=== PATIENT | male | born 1950 | race African-American/Black ===

== ENCOUNTER 2018-08-08 06:12 | Emergency (ER) | payer MEDICARE, MEDICAID ==
[2018-08-08] MEDS ORDERED: Ketorolac Tromethamine 30 MG/ML VIAL ONE (06:45)
[2018-08-08 06:50] LABS: #Basophils 0.1 thou/uL (0.0-0.2); #Lymphocytes 2.1 thou/uL (1.20-3.40); #Monocytes 0.7 thou/uL (0.11-0.59); #Neutrophils 4.5 thou/uL (1.40-6.50); %Basophils 1.2 % (0.0-1.0); %Eosinophils 0.5 % (0.0-10.0); %Lymphocytes 28.2 % (21.0-51.0); %Monocytes 9.6 % (0.0-10.0); %Neutrophils 60.6 % (42.0-75.0); Hemoglobin 16.3 g/dL (14.0-18.0); Mean Corpuscular HGB CONC 31.2 g/dL (32.0-36.0); Mean Corpuscular Hemoglobin 28.4 pg (27.0-31.0); Mean Corpuscular Volume 91.1 fL (78.0-98.0); Mean Platelet Volume 8.2 fL (7.4-10.4); Platelet Count 264 thou/uL (130-400); RBC Distribution Width 13.3 % (11.5-14.5); Red Blood Cell (RBC) Count 5.73 mill/uL (4.70-6.10); White Blood Cell (WBC) Count 7.5 thou/uL (4.8-10.8)
[2018-08-08] MEDS ORDERED: Ondansetron PF 4 MG/2 ML Vial ONE (07:00)
[2018-08-08 07:02] LABS: ALT (SGPT) 51 U/L (8-55); AST (SGOT) 102 U/L (5-34); Albumin 3.9 g/dL (3.4-4.8); Alkaline Phosphatase 383 U/L (40-150); Anion Gap 14 mmol/L (10-20); BUN (Urea Nitrogen) 7 mg/dL (8.4-25.7); Bilirubin, Total 1.4 mg/dL (0.2-1.2); Calc. Creatinine Clearance 0 mL/min (70-130); Calcium 11.6 mg/dL (7.8-10.44); Carbon Dioxide 24 mmol/L (23-31); Chloride 100 mmol/L (98-107); Estimated GFR-MDRD Greater than 90; Globulin 5.3 g/dL (2.4-3.5); Glucose 127 mg/dL (80-115); Lipase 63 U/L (8-78); Potassium 4.2 mmol/L (3.5-5.1); Protein, Total 9.2 g/dL (5.8-8.1); Sodium 134 mmol/L (136-145)
--- NOTE | 2018-08-08 07:58 | RAD ---
FRadiograph chest one view: 08/08/2018 6:29 AM HISTORY: 67 year old male with chest pain COMPARISON: 01/09/2019 FINDINGS: Lung volumes are much lower on the current study compared to the previous. New finding of mild patchy pulmonary density at right medial base, presumably atelectasis. Ectasia and tortuosity of thoracic a alyse. No pneumothorax. IMPRESSION: Probable mild atelectasis at right medial base. Recommend follow-up.
[2018-08-08] MEDS ORDERED: Iopamidol 300 61% 100 ML VIAL FS ONE (09:00)
--- NOTE | 2018-08-08 09:34 | CT ---
FEXAM:CT of abdomen and pelvis performed with contrast: HISTORY: Abdominal pain more epigastric. COMPARISON: None FINDINGS:The lung bases show some interstitial change primarily related to atelectasis. There are a f ew scattered tiny 4 to 5 mm pulmonary nodules identified, given patient's other findings these would be concerning for metastatic disease. Innumerable masses are seen within the liver one of the larger lesions measures 5.6 cm. There is also 3.2 cm hypodense mass within the spleen. Pancreas regions unremarkable, the gallbladder is contract ed small amount of free fluid is seen adjacent to the gallbladder and within Morison's pouch. Right and left adrenal glands and right left kidneys are normal in appearance. No significant periaor tic or mesenteric adenopathy. Postoperative changes at the GE junction region are seen. CT of pelvis performed with contrast enhancement bladder is contracted but the bladder wall appears t hickened there is an enlarged prostate. No significant pelvic lymphadenopathy. Review of osseous structures show a benign-appearing bone lesion within the left iliac. IMPRESSION: 1. Multiple liver masses very concerning for metastatic disease. There is also a solitary splenic les ion is identified. 2. Small pulmonary nodules measuring the 4 to 5 mm range concerning for metastatic disease a complete CT of the chest would be recommended for assessment. 3. Enlarged prostate with bladder wall thickening. 4. Findings discussed with Dr. Saini
== END 2018-08-08 10:00 | disposition home or self-care (01) ==
LOC: NAV ERS 06:12
DX: R16.0 Hepatomegaly, not elsewhere classified (principal); R11.2 Nausea with vomiting, unspecified; J45.909 Unspecified asthma, uncomplicated; I10 Essential (primary) hypertension; F17.210 Nicotine dependence, cigarettes, uncomplicated; Z79.51 Long term (current) use of inhaled steroids; Z79.899 Other long term (current) drug therapy
CPT/HCPCS: 71045; 74177; 80053; 83690; 84484; 85025; 93005; 96361; 96374; 96375; J1885; J2405; Q9967

== ENCOUNTER 2018-08-25 20:01 | Emergency (ER) | payer MEDICARE, MEDICAID ==
[2018-08-25] MEDS ORDERED: Morphine 4 MG/ML VIAL ONE (20:53)
== END 2018-08-25 20:58 | disposition home or self-care (01) ==
LOC: NAV ERS 20:01
DX: G89.3 Neoplasm related pain (acute) (chronic) (principal); C78.7 Secondary malignant neoplasm of liver and intrahepatic bile duct; R10.9 Unspecified abdominal pain; J45.909 Unspecified asthma, uncomplicated; I10 Essential (primary) hypertension; F17.210 Nicotine dependence, cigarettes, uncomplicated; Z79.899 Other long term (current) drug therapy
CPT/HCPCS: 96372; J2270